=== PATIENT | female | born 1975 | race Caucasian/White ===

== ENCOUNTER 2019-12-30 10:12 | Emergency (ER) | payer MEDICAID, OTHER ==
[~2019-12-30] VITALS: Ht 162.6 cm; Wt 107.0 kg
[2019-12-30 12:27] LABS: BASOPHILS % 1.2 % (0.0-2.0); EOSINOPHILS % 3.5 % (0.0-5.0); HEMATOCRIT. 40.3 % (36.0-48.0); HEMOGLOBIN. 13.7 g/dL (12.0-16.0); LYMPHOCYTES % 22.8 % (20.0-50.0); MEAN CORPUSCULAR HEMOGLOBIN 29.9 pg (28.0-32.0); MEAN CORPUSCULAR VOLUME 87.7 fL (81.0-99.0); MONOCYTES % 3.7 % (2.0-8.0); NEUTROPHILS % 68.8 % (40.0-76.0); PLATELET 178 x1000/uL (130-400); RED BLOOD CELL COUNT 4.59 mill/uL (4.2-5.4); RED CELL DISTRIBUTION WIDTH 15.1 % (11.6-14.6)
[2019-12-30 12:36] LABS: CHLORIDE 106 mEq/L (98-107)
[2019-12-30] MEDS ORDERED: HYDROCODONE/ACETAMINOPHEN 5/325MG TABLET PO ONE (14:00)
[2019-12-30] MEDS ORDERED: SODIUM CHLORIDE 0.9% 500 ML IV ONE (14:00)
[2019-12-30] MEDS ORDERED: ENOXAPARIN 100MG/ML SYR SUBCUT ONE (14:45)
[2019-12-30 14:53] LABS: PARTIAL THROMBOPLASTIN TIME 25.7 sec (23.4-31.0); PROTHROMBIN TIME 9.8 sec (9.6-11.0)
[2019-12-30] MEDS ORDERED: MORPHINE SULFATE 4 MG/ML CPJ (NOT FOR IM USE) IV ONE (15:45)
[2019-12-30] MEDS ORDERED: ONDANSETRON HCL 4MG/2ML INJ IV ONE (18:30)
[2019-12-30] MEDS ORDERED: ONDANSETRON HCL 4MG/2ML INJ IV STA (21:38)
[2019-12-30] MEDS ORDERED: MORPHINE SULFATE 4 MG/ML CPJ (NOT FOR IM USE) IV STA (21:38)
[2019-12-30 21:56] VITALS: BP 140/81
== END 2019-12-30 21:55 | disposition short-term general hospital (02) ==
LOC: ER 10:12 → CANBEDREQ 19:05 → ER 21:55
DX: M79.601 Pain in right arm (principal); R07.89 Other chest pain; I82.B11 Acute embolism and thrombosis of right subclavian vein; I82.90 Acute embolism and thrombosis of unspecified vein; E11.9 Type 2 diabetes mellitus without complications; I10 Essential (primary) hypertension; Z98.890 Other specified postprocedural states
CPT/HCPCS: 36415; 36573; 71045; 76937; 80053; 81025; 82962; 83880; 84484; 85025; 85610; 85730; 93005; 93971; 96372; 96374; 96375; 96376; 99285; C1725; J1650; J2270; J2405; J7040